=== PATIENT | female | born 1940 ===

== ENCOUNTER 2017-09-23 07:54 | Outpatient (CLI) | payer OTHER | END 2017-09-23 07:57 | disposition home or self-care (01) | LOC: SONOGRAMA 07:54 | DX: E04.1 Nontoxic single thyroid nodule (principal) ==

== ENCOUNTER 2020-03-14 08:09 | Outpatient (CLI) | payer OTHER | END 2020-03-14 08:12 | disposition home or self-care (01) | LOC: SONOGRAMA 08:09 | PROVIDERS: ATTEND Pathology Anatomic Pathology & Clinical Pathology | DX: D34 Benign neoplasm of thyroid gland (principal); E04.8 Other specified nontoxic goiter ==